=== PATIENT | female | born 1990 | race Two or more races ===

== ENCOUNTER 2018-03-16 15:27 | Emergency (ER) | payer SELFPAY ==
[~2018-03-16] VITALS: Ht 162.6 cm; Wt 83.5 kg
[2018-03-16 15:58] VITALS: BP 119/77
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
[2018-03-16] MEDS ORDERED: TYLENOL EXTRA500 MG ORAL (18:27)
[2018-03-16 18:39] VITALS: BP 125/68
[2018-03-16 18:40] VITALS: BP 125/68
--- NOTE | 2018-03-17 10:38 | Diagnostic Imaging Report ---
Indication: Pelvic pain, patient Technique: Transabdominal imaging and Doppler interrogation of the gravid uterus Comparison: none Findings: There is a single live intrauterine . This demonstrates positive heart activity, heart rate 146 bpm. Lateral fundal placenta, clears the internal cervical os. Cervix is closed, endocervical canal measured at 4.4 cm length. Normal amniotic fluid volume. Estimated gestational age by average of ultrasound measurements is 18 weeks 5 days. Estimated date of delivery 08/12/2018. Estimated gestational age by dates is 16 weeks 5 days. Detailed assessment of anatomy not performed, due to early stage of , emergent nature of the exam. Grossly normal spine, stomach, urinary bladder, three-vessel cord, cord insertion. The ovaries are not visualized. Impression: 18 week 5 day, by average of ultrasound measurements, single live intrauterine . No unusual features
== END 2018-03-16 18:40 | disposition home or self-care (01) ==
LOC: EMR 17:34
DX: O26.892 Other specified pregnancy related conditions, second trimester (principal); Z3A.17 17 weeks gestation of pregnancy; S40.011A Contusion of right shoulder, initial encounter; S70.01XA Contusion of right hip, initial encounter; R10.9 Unspecified abdominal pain; V43.62XA Car passenger injured in collision with other type car in traffic accident, initial encounter; Y92.488 Other paved roadways as the place of occurrence of the external cause
CPT/HCPCS: 76805; 99284